=== PATIENT | female | born 1995 | race Caucasian/White ===

== ENCOUNTER 2017-05-04 18:50 | Emergency (ER) | payer OTHER ==
--- NOTE | 2017-05-04 20:07 | ER Document Report ---
ED GI/ - General Chief Complaint: Abdominal Pain Stated Complaint: ABDOMINAL PAIN,VAGINAL DISCHARGE Time Seen by Provider: 05/04/17 20:01 Mode of Arrival: Ambulatory Information source: Patient Notes: Patient is a 21-year-old female who presents to the ER today with vaginal spotting, lower abdominal cramping and pressure, discharge, some nausea and increased sensitivity of smells, patient thinks she may be but she has the Yeimy IUD. She denies any dysuria, fevers or chills, diarrhea or vomiting. TRAVEL OUTSIDE OF THE [place] IN LAST 30 DAYS: No - Related Data Allergies/Adverse Reactions: No Known Allergies Allergy (Unverified 05/04/17 18:52) Past Medical History - General Information source: Patient - Social History Smoking Status: Former Smoker Chew tobacco use (# tins/day): No Frequency of alcohol use: None Drug Abuse: None Family History: Reviewed & Not Pertinent Patient has suicidal ideation: No Patient has homicidal ideation: No Renal/ Medical History: Denies: Hx Peritoneal Dialysis Review of Systems - Review of Systems Constitutional: No symptoms reported EENT: No symptoms reported Cardiovascular: No symptoms reported Respiratory: No symptoms reported Gastrointestinal: See HPI Genitourinary: See HPI Female Genitourinary: See HPI Musculoskeletal: No symptoms reported Skin: No symptoms reported Hematologic/Lymphatic: No symptoms reported Neurological/Psychological: No symptoms reported Physical Exam - Vital signs Vitals: Temp Pulse Resp BP Pulse Ox 98.3 F 81 20 121/67 100 05/04/17 19:01 05/04/17 19:01 05/04/17 19:01 05/04/17 19:01 05/04/17 19:01 - Notes Notes: PHYSICAL EXAMINATION: GENERAL: Well-appearing and in no acute distress. HEAD: Atraumatic, normocephalic. EYES: Pupils equal round and reactive to light, extraocular movements intact, sclera anicteric, conjunctiva are normal. NECK: Normal range of motion, supple without lymphadenopathy LUNGS: CTAB and equal. No wheezes rales or rhonchi. HEART: Regular rate and rhythm without murmurs ABDOMEN: Soft, no tenderness. No guarding, no rebound BACK: no vertebral tenderness, normal ROM GI/: no CVA tenderness EXTREMITIES: Normal range of motion, no pitting edema. No cyanosis. NEUROLOGICAL: Cranial nerves grossly intact. Normal sensory/motor exams. PSYCH: Normal mood, normal affect. SKIN: Warm, Dry, normal turgor, no rashes or lesions noted Course - Re-evaluation Re-evalutation: 05/04/17 21:15 negative here, patient declines ultrasound to look an IUD, states she will follow up with [facility]. - Vital Signs Vital signs: Temp Pulse Resp BP Pulse Ox 98.2 F 82 16 125/72 99 05/04/17 21:21 05/04/17 21:21 05/04/17 21:21 05/04/17 21:21 05/04/17 21:21 - Laboratory Result Diagrams: 05/04/17 20:15 05/04/17 20:15 Laboratory results interpreted by me: 05/04/17 05/04/17 20:15 20:15 ALT 40 H Urine Blood MODERATE H Urine Urobilinogen 2.0 H Ur Leukocyte Esterase TRACE H Discharge - Discharge Clinical Impression: Abdominal cramping Condition: Stable Disposition: HOME, SELF-CARE Additional Instructions: Return immediately for any new or worsening symptoms. Follow up with primary care provider, call tomorrow to make followup appointment.
[2017-05-04 20:28] LABS: ABSOLUTE EOSINOPHILS # (AUTO) 0.1 10^3/uL (0.0-0.6); ABSOLUTE LYMPHOCYTES (AUTO) 3.3 10^3/uL (0.5-4.7); ABSOLUTE MONOCYTES (AUTO) 0.7 10^3/uL (0.1-1.4); ABSOLUTE NEUT (AUTO) 3.9 10^3/uL (1.7-8.2); BASOPHILS % (AUTO) 0.5 % (0-2); EOSINOPHILS % (AUTO) 1.7 % (0-6); HEMATOCRIT 38.9 % (36.0-47.0); HEMOGLOBIN 13.5 g/dL (12.0-15.5); LYMPHOCYTES % (AUTO) 41.1 % (13-45); MEAN CORPUSCULAR HEMOGLOBIN 31.2 pg (27.0-33.4); MEAN CORPUSCULAR HGB CONC 34.8 g/dL (32.0-36.0); MEAN CORPUSCULAR VOLUME 90 fl (80-97); MONOCYTES % (AUTO) 8.6 % (3-13); PLATELET COUNT 291 10^3/uL (150-450); RED BLOOD COUNT 4.34 10^6/uL (3.72-5.28); RED CELL DISTRIBUTION WIDTH 13.1 % (11.5-14.0); SEGMENTED NEUTROPHILS % (AUTO) 48.1 % (42-78); TOTAL CELLS COUNTED % (AUTO) 100 %; WHITE BLOOD COUNT 8.1 10^3/uL (4.0-10.5)
[2017-05-04 20:37] LABS: APPEARANCE,URINE SLIGHTLY-CLOUDY; BILIRUBIN,URINE NEGATIVE (NEGATIVE); COLOR,URINE YELLOW; GLUCOSE, URINE NEGATIVE (NEGATIVE); KETONES,URINE NEGATIVE (NEGATIVE); LEUKOCYTE ESTERASE,URINE TRACE (NEGATIVE); NITRITE,URINE NEGATIVE (NEGATIVE); PROTEIN,URINE NEGATIVE (NEGATIVE); URINE SPECIFIC GRAVITY 1.018
[2017-05-04 20:50] LABS: ALANINE AMINOTRANSFERASE 40 U/L (5-35); ALBUMIN 4.7 g/dL (3.7-5.6); ALKALINE PHOSPHATASE 56 U/L (50-135); ANION GAP 10 (5-19); ASPARTATE AMINO TRANSFERASE 27 U/L (5-30); BILIRUBIN,DIRECT 0.3 mg/dL (0.0-0.4); BILIRUBIN,TOTAL 0.8 mg/dL (0.2-1.3); BLOOD UREA NITROGEN 8 mg/dL (7-20); CALCIUM 9.6 mg/dL (8.4-10.2); CARBON DIOXIDE 26 mmol/L (22-30); CHLORIDE 103 mmol/L (98-107); GLUCOSE 82 mg/dL (75-110); LIPASE 144.8 U/L (23-300); POTASSIUM 4.1 mmol/L (3.6-5.0); SODIUM 139.3 mmol/L (137-145); TOTAL PROTEIN 7.4 g/dL (6.3-8.2)
[2017-05-04 21:29] VITALS: BP 125/72
== END 2017-05-04 21:21 | disposition home or self-care (01) ==
LOC: ER 18:50
DX: R10.30 Lower abdominal pain, unspecified (principal); R11.0 Nausea; Z87.891 Personal history of nicotine dependence
CPT/HCPCS: 36415; 80053; 81001; 83690; 84702; 85025; 99284

== ENCOUNTER 2018-01-04 19:02 | Emergency (ER) | payer OTHER ==
--- NOTE | 2018-01-04 19:23 | ER Document Report ---
ED Medical Screen (RME) - General Chief Complaint: Abdominal Pain Stated Complaint: ABDOMINAL PAIN Time Seen by Provider: 01/04/18 19:17 Notes: 22-year-old female patient reports she is about 4 weeks with pelvic pain for the last 2 hours. No bleeding. She states she had a period on 2017, and then positive home test, was seen in the [facility] in and they told her her hCG was negative. She proceeded to have more positive home hCG tests that were done from different manufacturers. I have greeted and performed a rapid initial assessment of this patient. A comprehensive ED assessment and evaluation of the patient, analysis of test results and completion of the medical decision making process will be conducted by additional ED providers. TRAVEL OUTSIDE OF THE [place] IN LAST 30 DAYS: No - Related Data Allergies/Adverse Reactions: No Known Allergies Allergy (Verified 01/04/18 19:03) Past Medical History Renal/ Medical History: Denies: Hx Peritoneal Dialysis Physical Exam - Vital signs Vitals: Temp Pulse Resp BP Pulse Ox 98.0 F 86 16 125/65 100 01/04/18 19:05 01/04/18 19:05 01/04/18 19:05 01/04/18 19:05 01/04/18 19:05 Course - Vital Signs Vital signs: Temp Pulse Resp BP Pulse Ox 98.0 F 86 16 125/65 100 01/04/18 19:05 01/04/18 19:05 01/04/18 19:05 01/04/18 19:05 01/04/18 19:05
[2018-01-04 19:52] LABS: ABSOLUTE EOSINOPHILS # (AUTO) 0.1 10^3/uL (0.0-0.6); ABSOLUTE LYMPHOCYTES (AUTO) 3.9 10^3/uL (0.5-4.7); ABSOLUTE MONOCYTES (AUTO) 0.7 10^3/uL (0.1-1.4); BASOPHILS % (AUTO) 0.4 % (0-2); EOSINOPHILS % (AUTO) 1.1 % (0-6); HEMATOCRIT 39.1 % (36.0-47.0); HEMOGLOBIN 13.7 g/dL (12.0-15.5); LYMPHOCYTES % (AUTO) 36.3 % (13-45); MEAN CORPUSCULAR VOLUME 91 fl (80-97); MONOCYTES % (AUTO) 6.4 % (3-13); PLATELET COUNT 296 10^3/uL (150-450); RED BLOOD COUNT 4.28 10^6/uL (3.72-5.28); RED CELL DISTRIBUTION WIDTH 12.9 % (11.5-14.0); SEGMENTED NEUTROPHILS % (AUTO) 55.8 % (42-78); TOTAL CELLS COUNTED % (AUTO) 100 %; WHITE BLOOD COUNT 10.7 10^3/uL (4.0-10.5)
[2018-01-04 20:09] LABS: ALANINE AMINOTRANSFERASE 23 U/L (9-52); ALBUMIN 4.5 g/dL (3.5-5.0); ALKALINE PHOSPHATASE 53 U/L (38-126); ANION GAP 11 (5-19); ASPARTATE AMINO TRANSFERASE 21 U/L (14-36); BILIRUBIN,DIRECT 0.4 mg/dL (0.0-0.4); BILIRUBIN,TOTAL 0.8 mg/dL (0.2-1.3); BLOOD UREA NITROGEN 11 mg/dL (7-20); CALCIUM 9.3 mg/dL (8.4-10.2); CARBON DIOXIDE 23 mmol/L (22-30); CHLORIDE 104 mmol/L (98-107); GLUCOSE 109 mg/dL (75-110); SODIUM 137.9 mmol/L (137-145); TOTAL PROTEIN 7.7 g/dL (6.3-8.2)
--- NOTE | 2018-01-04 23:08 | RADIOLOGY REPORT (SQ) ---
EXAM DESCRIPTION: US TRANSVAGINAL COMPLETED DATE/TME: 01/04/2018 19:21 CLINICAL HISTORY: 22 years, Female, + home hCG, pelvic pain x 2 hrs LMP 11/03/2017. COMPARISON: None. TECHNIQUE: Complete first trimester obstetrical ultrasound with transvaginal imaging. FINDINGS: Uterus measures 6.7 x 4.7 x 2.9 cm. Cervical length of 2.6 cm and closed. No myometrial abnormalities. Within the endometrial canal there is a cystic structure measuring 2.8 mm. If this represents a gestational sac the estimated gestational age would be 5 weeks, 0 days. No pole or yolk sac identified. No free pelvic fluid. The right ovary measures 3.3 x 2.1 x 2.3 cm. The left ovary measures 2.0 x 1.9 x 2.3 cm. Incidental color Doppler images demonstrate flow in the ovaries. Spectral Doppler imaging was not performed of the ovaries. IMPRESSION: 1. There is a possible gestational sac within the endometrial canal. If this represents a gestational sac the estimated gestational age would be 5 weeks, 0 days. Differential considerations include early normal , pseudogestational sac of ectopic , and anembryonic . Close continued clinical, laboratory, and sonographic follow-up recommended. 2010 [employer]- All Rights Reserved
--- NOTE | 2018-01-04 23:34 | ER Document Report ---
ED General - General Chief Complaint: Abdominal Pain Stated Complaint: ABDOMINAL PAIN Time Seen by Provider: 01/04/18 19:17 Mode of Arrival: Ambulatory Information source: Patient Notes: This is a 22-year-old female 1 para 0 last normal menstrual period unclear (not sure if November or December). Patient developed some lower suprapubic discomfort 1 hour prior to arrival. She denied any vaginal bleeding. She did have a history of a couple of tests in November and then bled and was told by the ER that she was not . Despite this she subsequently had test after this evaluation so it is unclear where in the she is. She denies any vaginal bleeding in the past month. TRAVEL OUTSIDE OF THE [place] IN LAST 30 DAYS: No - HPI Onset: Just prior to arrival Onset/Duration: Sudden Quality of pain: Dull Severity: Mild Pain Level: 1 Associated symptoms: denies: Chest pain, Fever, Shortness of breath Exacerbated by: Denies Relieved by: Denies Similar symptoms previously: Yes Recently seen / treated by doctor: Yes - Related Data Allergies/Adverse Reactions: No Known Allergies Allergy (Verified 01/04/18 19:03) Past Medical History - General Information source: Patient - Social History Smoking Status: Never Smoker Cigarette use (# per day): No Chew tobacco use (# tins/day): No Frequency of alcohol use: None Drug Abuse: None Lives with: Family Family History: Reviewed & Not Pertinent Patient has suicidal ideation: No Patient has homicidal ideation: No - Medical History Medical History: Negative Renal/ Medical History: Denies: Hx Peritoneal Dialysis Surgical Hx: Negative Review of Systems - Review of Systems Constitutional: denies: Chills, Fever EENT: No symptoms reported Cardiovascular: No symptoms reported Respiratory: No symptoms reported Gastrointestinal: Abdominal pain Genitourinary: No symptoms reported Female Genitourinary: See HPI Musculoskeletal: No symptoms reported Skin: No symptoms reported Hematologic/Lymphatic: No symptoms reported Neurological/Psychological: No symptoms reported Physical Exam - Vital signs Vitals: Temp Pulse Resp BP Pulse Ox 98.0 F 86 16 125/65 100 01/04/18 19:05 01/04/18 19:05 01/04/18 19:05 01/04/18 19:05 01/04/18 19:05 Notes: Physical exam: GENERAL: Patient looks quite good and is conversant and oriented and joking during interview. She is in no distress. She complains of no abdominal pain at this time. She has not had any vaginal bleeding. She denies vaginal discharge. Her vital signs are stable. HEAD: Atraumatic, normocephalic. EYES: Pupils equal round and reactive to light, extraocular movements intact, sclera anicteric, conjunctiva are normal. ENT: TMs normal, nares patent, oropharynx clear without exudates. Moist mucous membranes. NECK: Normal range of motion, supple without obvious mass or JVD. LUNGS: Breath sounds clear to auscultation bilaterally and equal. No wheezes rales or rhonchi. HEART: Regular rate and rhythm without murmurs, rubs or gallops. ABDOMEN: Soft, normoactive bowel sounds. No tenderness to palpation. No guarding, no rebound. No masses appreciated. EXTREMITIES: Normal range of motion, no pitting or edema. No clubbing or cyanosis. NEUROLOGICAL: Cranial nerves II through XII grossly intact. Normal speech, moving all extremities. PSYCH: Normal mood, normal affect. SKIN: Warm, Dry, normal turgor, no rashes or lesions noted. Course - Re-evaluation Re-evalutation: 01/04/18 23:32 I discussed the ultrasound report with her and her . It does show an early which is consistent with her beta quant of 1628. This is not a definitive as there is no heartbeat at this time. I discussed with them that you would not see a heartbeat until the sixth week of gestation and that it simply too early. I recommended they follow-up with their OB (a have an appointment at [facility] on January 16). I explained that to them that they should come back to the emergency room if there is any bleeding or pain. Her blood type was a positive. And I gave them a copy of the lab results as well as the ultrasound report and we will give them the ultrasound on disc. - Vital Signs Vital signs: Temp Pulse Resp BP Pulse Ox 98.0 F 86 16 125/65 100 01/04/18 19:05 01/04/18 19:05 01/04/18 19:05 01/04/18 19:05 01/04/18 19:05 - Laboratory Result Diagrams: 01/04/18 19:40 01/04/18 19:40 Laboratory results interpreted by me: 10/04/18 10/04/18 19:40 19:40 WBC 10.7 H Beta HCG, Quant 1628.60 H - Diagnostic Test Radiology reviewed: Image reviewed, Reports reviewed - Transvaginal ultrasound shows an endometrial gestational sac without a heartbeat which is consistent with approximately 5 weeks gestation. There is no free fluid. There is no adnexal masses. Discharge - Discharge Clinical Impression: Early Condition: Stable Disposition: HOME, SELF-CARE Additional Instructions: As we discussed, the ultrasound does show a possible early ( approximately 5 weeks) in the endometrium (which is what we want). It is not definitively diagnosed as an intrauterine because there is no heartbeat (we would not expect to see the heartbeat until about 6-7 weeks gestation). Rest, drink plenty of fluids, avoid sex until follow-up with OB doctor. Can take Tylenol for cramping. Return to the emergency room for any worsening pain, worsening bleeding or any concerns or getting worse. Bring a copy of today's labs, ultrasound report and ultrasound disc with you when you see the OB doctor on January 16.
[2018-01-05 00:01] VITALS: BP 115/66
== END 2018-01-04 23:45 | disposition home or self-care (01) ==
LOC: ER 19:02
DX: O26.91 Pregnancy related conditions, unspecified, first trimester (principal); Z3A.01 Less than 8 weeks gestation of pregnancy
CPT/HCPCS: 36415; 76817; 80053; 84702; 85025; 86900; 86901; 99284

== ENCOUNTER 2018-01-30 08:57 | Emergency (ER) | payer OTHER ==
[2018-01-30 09:01] VITALS: BP 120/75
--- NOTE | 2018-01-30 09:34 | ER Document Report ---
ED Medical Screen (RME) - General Chief Complaint: OB Problem (<20wks) Stated Complaint: VAGINAL BLEEDING Time Seen by Provider: 01/30/18 09:25 Notes: 22 years old female who is a G , early this morning started to bleed and passed a clot. Therefore concerned and came to the ED. Initially having a lot of cramps but that has somewhat subsided now. This is her first . TRAVEL OUTSIDE OF THE [place] IN LAST 30 DAYS: No - Related Data Allergies/Adverse Reactions: No Known Allergies Allergy (Verified 01/30/18 08:58) Past Medical History - General Last Menstrual Period: Dec 02 - Social History Chew tobacco use (# tins/day): No Frequency of alcohol use: None Drug Abuse: None Renal/ Medical History: Denies: Hx Peritoneal Dialysis Physical Exam - Vital signs Vitals: Temp Pulse Resp BP Pulse Ox 98.3 F 96 18 120/75 96 01/30/18 09:00 01/30/18 09:00 01/30/18 09:00 01/30/18 09:00 01/30/18 09:00 Course - Vital Signs Vital signs: Temp Pulse Resp BP Pulse Ox 98.3 F 96 18 120/75 96 01/30/18 09:00 01/30/18 09:00 01/30/18 09:00 01/30/18 09:00 01/30/18 09:00
[2018-01-30 10:21] LABS: BASOPHILS % (AUTO) 0.2 % (0-2); EOSINOPHILS % (AUTO) 0.4 % (0-6); HEMATOCRIT 38.5 % (36.0-47.0); HEMOGLOBIN 13.5 g/dL (12.0-15.5); LYMPHOCYTES % (AUTO) 18.5 % (13-45); MEAN CORPUSCULAR HGB CONC 34.9 g/dL (32.0-36.0); MEAN CORPUSCULAR VOLUME 92 fl (80-97); MONOCYTES % (AUTO) 6.8 % (3-13); PLATELET COUNT 273 10^3/uL (150-450); RED BLOOD COUNT 4.21 10^6/uL (3.72-5.28); SEGMENTED NEUTROPHILS % (AUTO) 74.1 % (42-78); WHITE BLOOD COUNT 9.7 10^3/uL (4.0-10.5)
[2018-01-30 10:22] LABS: ABSOLUTE LYMPHOCYTES (AUTO) 1.8 10^3/uL (0.5-4.7); ABSOLUTE MONOCYTES (AUTO) 0.7 10^3/uL (0.1-1.4); ABSOLUTE NEUT (AUTO) 7.2 10^3/uL (1.7-8.2); TOTAL CELLS COUNTED % (AUTO) 100 %
[2018-01-30 10:33] LABS: AMORPHOUS SEDIMENT,URINE 1+ /HPF; APPEARANCE,URINE CLOUDY; BILIRUBIN,URINE NEGATIVE (NEGATIVE); COLOR,URINE YELLOW; GLUCOSE, URINE NEGATIVE (NEGATIVE); KETONES,URINE NEGATIVE (NEGATIVE); LEUKOCYTE ESTERASE,URINE NEGATIVE (NEGATIVE); NITRITE,URINE NEGATIVE (NEGATIVE); PROTEIN,URINE 30 mg/dL (NEGATIVE); URINE SPECIFIC GRAVITY 1.021; UROBILINOGEN,URINE NEGATIVE mg/dL (<2.0)
--- NOTE | 2018-01-30 11:33 | RADIOLOGY REPORT (SQ) ---
EXAM DESCRIPTION: U/S 1TRIMESTER/1GEST W/DOPPLER COMPLETED DATE/TIME: 01/30/2018 11:11 am REASON FOR STUDY: 8 weeks , vaginal bleeding COMPARISON: 01/04/2018 TECHNIQUE: Transabdominal static and realtime grayscale images acquired of the pelvis. Additional se lected spectral and color Doppler images recorded. All images stored on PACs. bHCG: Not available CLINICAL DATES: 09/06/2018 LIMITATIONS: None. FINDINGS: FETUS: Single Living intrauterine . ULTRASOUND EGA: 7 weeks 5 days ULTRASOUND AUDELIA: 09/06/2018 EFW: Not applicable less than 20 weeks. CRL: 1.4 cm FHR: 187 beats per minute. SURVEY: No visualized anomalies. AMNIOTIC FLUID: Adequate amount. PLACENTA: Not yet developed due to early gestation. SUBCHORIONIC BLEED: No SIZE OF BLEED: Not applicable. UTERUS: No masses. No anomalies. CERVICAL LENGTH: 2.4 cm Closed. RIGHT ADNEXA: Right ovary was not visualized. No adnexal free fluid. No adnexal masses. LEFT ADNEXA: Left ovary was not visualized. No adnexal free fluid. No adnexal masses. FREE FLUID: None. OTHER: No other significant finding. IMPRESSION: LIVING INTRAUTERINE . EGA 7 weeks 5 days Trimester of : First - 0 to 13 weeks. TECHNICAL DOCUMENTATION: JOB ID: [id number] [employer]- All Rights Reserved Reading location - IP/workstation name: [email or web address]
--- NOTE | 2018-01-30 11:35 | ER Document Report ---
ED General - General Chief Complaint: OB Problem (<20wks) Stated Complaint: VAGINAL BLEEDING Time Seen by Provider: 01/30/18 09:25 Mode of Arrival: Ambulatory Information source: Patient, Relative, [facility] Records Notes: 22-year-old female at 8 weeks and 4 days presents with vaginal bleeding. Patient's last menstrual period was December 02, 2017. She states since January 16 she has had mild spotting and was seen twice in the emergency department once here at [facility] and once at [facility]. Patient had a recent ultrasound last week at [facility] that she reports showed an IUP with a "strong heartbeat". She also had an ultrasound here in the emergency department on January 04 that showed a gestational sac but no definitive yolk sac or heartbeat. Patient states that she had been doing well but this morning he experienced a large amount of bleeding with clots. She denies any lower abdominal pain. She did state that she and her had sex yesterday. She denies fever, chills, nausea, vomiting. She does complain of a sore throat and nasal congestion. TRAVEL OUTSIDE OF THE [place] IN LAST 30 DAYS: No - HPI Onset: Other Onset/Duration: Sudden Quality of pain: No pain Associated symptoms: denies: Chest pain, Fever, Nausea, Vomiting, Shortness of breath Exacerbated by: Denies Relieved by: Denies Similar symptoms previously: Yes Recently seen / treated by doctor: Yes - Related Data Allergies/Adverse Reactions: No Known Allergies Allergy (Verified 01/30/18 08:58) Past Medical History - General Information source: Patient, Relative, [facility] Records Last Menstrual Period: Dec 02 - Social History Smoking Status: Never Smoker Chew tobacco use (# tins/day): No Frequency of alcohol use: None Drug Abuse: None Lives with: Spouse/Significant other Family History: Reviewed & Not Pertinent Patient has suicidal ideation: No Patient has homicidal ideation: No Renal/ Medical History: Denies: Hx Peritoneal Dialysis Review of Systems - Review of Systems Notes: REVIEW OF SYSTEMS: CONSTITUTIONAL : Denies fever, chills, or sweats. Denies recent illness. Denies weight loss, recent hospitalizations. EENT: Denies visual changes, eye pain. Denies oral lesions, difficulty swallowing. CARDIOVASCULAR: Denies chest pain. Denies palpitations. Denies lower extremity edema. RESPIRATORY: Denies cough. Denies shortness of breath, wheezing. GASTROINTESTINAL: Denies abdominal pain or distention. Denies nausea, vomiting , or diarrhea. Denies blood in vomitus, stools, or per rectum. Denies black, tarry stools. Denies constipation. GENITOURINARY: Denies difficulty urinating, painful urination, frequency, blood in urine, or vaginal discharge. MUSCULOSKELETAL: Denies back or neck pain or stiffness. Denies joint pain or swelling. SKIN: Denies rash, lesions or sores. HEMATOLOGIC : Denies easy bruising or bleeding. LYMPHATIC: Denies swollen glands. NEUROLOGICAL: Denies confusion or altered mental status. Denies loss of consciousness. Denies dizziness or lightheadedness. Denies headache. Denies weakness or paralysis. Denies problems difficulty with ambulation, slurred speech. Denies sensory loss, numbness, or tingling. Denies seizures. PSYCHIATRIC: Denies anxiety or stress. Denies depression, suicidal ideation, or homicidal ideation. Denies visual or auditory hallucinations. Physical Exam - Vital signs Vitals: Temp Pulse Resp BP Pulse Ox 98.3 F 96 18 120/75 96 01/30/18 09:00 01/30/18 09:00 01/30/18 09:00 01/30/18 09:00 01/30/18 09:00 Interpretation: Normal. No: Febrile - Notes Notes: PHYSICAL EXAMINATION: GENERAL: Well-appearing, well-nourished and in no acute distress. HEAD: Atraumatic, normocephalic. EYES: Pupils equal round and reactive to light, extraocular movements intact, conjunctiva are normal. ENT: Nares patent, oropharynx clear without exudates. Moist mucous membranes. NECK: Normal range of motion, supple without lymphadenopathy LUNGS: Breath sounds clear to auscultation bilaterally and equal. No wheezes rales or rhonchi. HEART: Regular rate and rhythm without murmurs ABDOMEN: Soft, nontender, nondistended abdomen. No guarding, no rebound. No masses appreciated. Female : Os closed. Mild bleeding Musculoskeletal: Normal range of motion, no pitting or edema. No cyanosis. NEUROLOGICAL: Cranial nerves grossly intact. Normal speech, normal gait. Normal sensory, motor exams PSYCH: Normal mood, normal affect. SKIN: Warm, Dry, normal turgor, no rashes or lesions noted. Course - Re-evaluation Re-evalutation: Laboratory 01/30/18 01/30/18 01/30/18 09:55 09:55 10:03 WBC 9.7 RBC 4.21 Hgb 13.5 Hct 38.5 MCV 92 MCH 32.0 MCHC 34.9 RDW 13.0 Plt Count 273 Seg Neutrophils % 74.1 Lymphocytes % 18.5 Monocytes % 6.8 Eosinophils % 0.4 Basophils % 0.2 Absolute Neutrophils 7.2 Absolute Lymphocytes 1.8 Absolute Monocytes 0.7 Absolute Eosinophils 0.0 Absolute Basophils 0.0 Beta HCG, Quant Total Beta HCG Urine Color YELLOW Urine Appearance CLOUDY Urine pH 9.0 Ur Specific Franklin 1.021 Urine Protein 30 H Urine Glucose (UA) NEGATIVE Urine Ketones NEGATIVE Urine Blood MODERATE H Urine Nitrite NEGATIVE Urine Bilirubin NEGATIVE Urine Urobilinogen NEGATIVE Ur Leukocyte Esterase NEGATIVE Urine WBC (Auto) 3 Urine RBC (Auto) 175 Urine Bacteria (Auto) TRACE Squamous Epi Cells Auto <1 Amorphous Sediment Auto 1+ Urine Mucus (Auto) OCC Urine Ascorbic Acid NEGATIVE Blood Type A POSITIVE Rhogam Indicated RHOGAM NOT INDICATED 01/30/18 11:30 WBC RBC Hgb Hct MCV MCH MCHC RDW Plt Count Seg Neutrophils % Lymphocytes % Monocytes % Eosinophils % Basophils % Absolute Neutrophils Absolute Lymphocytes Absolute Monocytes Absolute Eosinophils Absolute Basophils Beta HCG, Quant 59541.00 H Total Beta HCG POSITIVE Urine Color Urine Appearance Urine pH Ur Specific Franklin Urine Protein Urine Glucose (UA) Urine Ketones Urine Blood Urine Nitrite Urine Bilirubin Urine Urobilinogen Ur Leukocyte Esterase Urine WBC (Auto) Urine RBC (Auto) Urine Bacteria (Auto) Squamous Epi Cells Auto Amorphous Sediment Auto Urine Mucus (Auto) Urine Ascorbic Acid Blood Type Rhogam Indicated Obstetrics Ultrasound 01/30/18 09:25 IMPRESSION: LIVING INTRAUTERINE . EGA 7 weeks 5 days Trimester of : First - 0 to 13 weeks. 01/30/18 15:21 22-year-old female at 8 weeks and 4 days presents with vaginal bleeding. Patient's last menstrual period was December 02, 2017. She states since January 16 she has had mild spotting and was seen twice in the emergency department once here at [facility] and once at [facility]. Patient had a recent ultrasound last week at [facility] that she reports showed an IUP with a "strong heartbeat". She also had an ultrasound here in the emergency department on January 04 that showed a gestational sac but no definitive yolk sac or heartbeat. Patient states that she had been doing well but this morning he experienced a large amount of bleeding with clots. She denies any lower abdominal pain. She did state that she and her had sex yesterday. Vital signs reviewed and within normal limits. Patient is afebrile, normotensive and not hypoxic. She does not appear toxic or dehydrated. She is in no acute distress. Patient has no abdominal pain, mild bleeding and her office is closed. Ultrasound obtained today showed an IUP with a heart rate of 187. No subchorionic hemorrhage noted. Patient's hCG level is now almost 100,000 compared to 1600 at the beginning of January. Patient is Rh+ and no RhoGam is required. We did discuss that many females experienced vaginal bleeding during and go on to have healthy babies. She was encouraged to return with worsening bleeding or abdominal pain. She does have an upcoming appointment at [facility] in 2 days. She was provided copies of her lab work and ultrasound today. Patient was evaluated and treated as appropriate for the patient's presenting symptoms and complaint, with consideration of any critical or life threatening conditions that may be associated with their obtained history and exam as noted above. All results were discussed with patient. Patient provided the opportunity to ask questions, and express concerns. Patient was educated on treatments based on their presumed diagnosis as noted above. At this time we will discharge the patient with return precautions and follow-up recommendations. Verbal discharge instructions given a the bedside. Medication warnings reviewed. Patient is in agreement with this plan and has verbalized understanding of return precautions. After careful consideration I feel that that patient can be safely discharged from the emergency department, they were advised to followup with a primary care physician in 2-3 days. Dictation on this chart was performed using voice recognition software and may result in unintended grammatical, spelling, syntax or errors. 01/30/18 15:21 01/30/18 15:23 - Vital Signs Vital signs: Temp Pulse Resp BP Pulse Ox 98.3 F 96 18 120/75 96 01/30/18 09:00 01/30/18 09:00 01/30/18 09:00 01/30/18 09:00 01/30/18 09:00 - Laboratory Result Diagrams: 01/30/18 09:55 Laboratory results interpreted by me: 01/30/18 01/30/18 10:03 11:30 Beta HCG, Quant 08495.00 H Urine Protein 30 H Urine Blood MODERATE H - Diagnostic Test Radiology reviewed: Image reviewed, Reports reviewed Discharge - Discharge Clinical Impression: Vaginal bleeding during , Threatened miscarriage in early Condition: Good Disposition: HOME, SELF-CARE Instructions: Bleeding During Early ([facility]), Ob-[employer], ([facility]), Threatened Miscarriage ([facility]), Threatened Abortions ([facility]) Additional Instructions: Your ultrasound today did show a living intrauterine . Many women experience bleeding during and go on to have healthy babies. Please return to the emergency department if you experience increased vaginal bleeding , abdominal pain or any other symptoms that concern you. I have provided you with a copy of your imaging and lab work that was performed today. Follow up with your [id number] hours for further care or return to the ED IMMEDIATELY if symptoms worsen or you have any concerns. If you cannot afford to follow up with your primary care physician a list of low cost clinics have been provided at the end of your discharge papers as well. Most prescribed medications have multiple side effects. The safest thing to do is when filling your prescription speak to your pharmacist regarding possible interactions with your normal home medications and over the counter medications such as Ibuprofen, Tylenol, Benadryl. If you experience any symptoms that cause you discomfort or concern you should discontinue the medication immediately and return to the emergency room or call your primary care physician. Referrals: BRADFORD ARROYO MD [ACTIVE STAFF] - Follow up as needed LENKA STONER MD [EMERITUS] - Follow up as needed
== END 2018-01-30 14:50 | disposition home or self-care (01) ==
LOC: ER 08:57
DX: O20.0 Threatened abortion (principal); Z3A.00 Weeks of gestation of pregnancy not specified
CPT/HCPCS: 36415; 76801; 81001; 84702; 85025; 86900; 86901; 93976; 99284